=== PATIENT | male | born 1960 | race Native Hawaiian/Other Pacific Islander ===

== ENCOUNTER 2016-07-19 11:48 | Outpatient (CLI) | payer OTHER | END 2016-07-19 12:48 | disposition home or self-care (01) | LOC: LABW 11:48 | DX: M05.79 Rheumatoid arthritis with rheumatoid factor of multiple sites without organ or systems involvement (principal) | CPT/HCPCS: 82085; 86200; 86480; 86705; 87340 ==

== ENCOUNTER 2016-11-29 11:54 | Outpatient (CLI) | payer OTHER | END 2016-11-29 13:00 | disposition home or self-care (01) | LOC: RAD 11:54 | DX: M05.79 Rheumatoid arthritis with rheumatoid factor of multiple sites without organ or systems involvement (principal) ==

== ENCOUNTER 2017-08-12 15:19 | Inpatient (IN) | payer OTHER ==
[~2017-08-12] VITALS: Ht 167.6 cm; Wt 74.0 kg
[2017-08-12 15:25] VITALS: BP 159/96; TEMP 98.2
[2017-08-12 16:41] LABS: PLATELET COUNT 352 K/uL (142-355)
[2017-08-12 16:59] LABS: POTASSIUM 3.4 mmol/L (3.6-5.2)
[2017-08-12 17:00] VITALS: BP 162/90
[2017-08-12 17:17] LABS: PARTIAL THROMBOPLASTIN TIME 26.6 SECONDS (24.5-33.6)
[2017-08-12 17:56] VITALS: BP 162/100; TEMP 98.6; Ht 167.6 cm; Wt 74.0 kg
[2017-08-12 20:00] VITALS: BP 159/86; TEMP 98.7
[2017-08-13] VITALS (7 sets, daily range): BP systolic 132–167; BP diastolic 82–98; TEMP 97.9–98.4
[2017-08-13 06:22] LABS: PLATELET COUNT 292 K/uL (142-355)
[2017-08-13 06:40] LABS: POTASSIUM 3.8 mmol/L (3.6-5.2)
[2017-08-14 04:00] VITALS: BP 151/90; TEMP 98.3
[2017-08-14 05:20] LABS: PLATELET COUNT 247 K/uL (142-355)
[2017-08-14 05:32] LABS: POTASSIUM 3.7 mmol/L (3.6-5.2)
[2017-08-14 08:00] VITALS: BP 141/90; TEMP 99.8
[2017-08-14] MEDS ORDERED: METR250T19 PO (09:45)
[2017-08-14] MEDS ORDERED: CEPH500C20 PO (09:45)
[2017-08-14] MEDS ORDERED: KETO10TA34 PO (09:45)
[2017-08-14 11:49] VITALS: BP 141/83; TEMP 98.6
== END 2017-08-14 13:20 | disposition home or self-care (01) | DRG 603 ==
LOC: ED 15:19 → MED/SURG 15:45 → ED 17:40 → MED/SURG 08-14 13:20
PROVIDERS: ADMIT Emergency Medicine
DX: L03.213 Periorbital cellulitis (principal); K02.9 Dental caries, unspecified; I10 Essential (primary) hypertension; M15.8 Other polyosteoarthritis; M10.9 Gout, unspecified
CPT/HCPCS: 36415; 80053; 80202; 83735; 85027; 85610; 85730; 87040; 96365; 96366; 96367; 99284; J0696; J1650; J1885; J3370; J3490

== ENCOUNTER 2017-11-25 13:40 | Outpatient (CLI) | payer OTHER ==
[~2017-11-25 13:40] MED LIST: CEPH500C20 PO; KETO10TA34 PO; METR250T19 PO
== END 2017-11-25 20:01 | disposition home or self-care (01) ==
LOC: RAD 13:40
DX: M05.79 Rheumatoid arthritis with rheumatoid factor of multiple sites without organ or systems involvement (principal)

== ENCOUNTER 2019-10-28 16:00 | Outpatient (CLI) | payer OTHER | END 2019-10-28 19:16 | disposition home or self-care (01) | LOC: RAD 16:00 | DX: M05.79 Rheumatoid arthritis with rheumatoid factor of multiple sites without organ or systems involvement (principal) ==

== ENCOUNTER 2020-05-17 16:48 | Emergency (ER) | payer OTHER ==
[~2020-05-17] VITALS: Ht 167.6 cm; Wt 75.8 kg
[2020-05-17 17:32] LABS: PLATELET COUNT 249 K/uL (142-355)
[2020-05-17 17:50] LABS: POTASSIUM 3.8 mmol/L (3.6-5.2); SODIUM 142 mmol/L (136-145)
[2020-05-17 18:15] VITALS: BP 171/90; TEMP 99.9
== END 2020-05-17 18:15 | disposition home or self-care (01) ==
LOC: ED 16:52
PROVIDERS: Hospitalist
DX: I16.0 Hypertensive urgency (principal); F17.290 Nicotine dependence, other tobacco product, uncomplicated
CPT/HCPCS: 36415; 80053; 82550; 83880; 84484; 85027; 85610; 85730; 93005; 99283

== ENCOUNTER 2020-11-20 15:49 | Emergency (ER) | payer OTHER ==
[~2020-11-20] VITALS: Ht 167.6 cm; Wt 75.7 kg
[2020-11-20 15:57] VITALS: TEMP 98.4
[2020-11-20 16:47] LABS: PLATELET COUNT 454 K/uL (142-355)
[2020-11-20 16:58] LABS: POTASSIUM 4.1 mmol/L (3.6-5.2)
[2020-11-20 18:06] VITALS: BP 164/88
== END 2020-11-20 18:06 | disposition home or self-care (01) ==
LOC: ED 15:49
PROVIDERS: Emergency Medicine Emergency Medical Services
DX: I10 Essential (primary) hypertension (principal); Z98.890 Other specified postprocedural states; F17.290 Nicotine dependence, other tobacco product, uncomplicated
CPT/HCPCS: 80053; 85027; 99282; 99283

== ENCOUNTER → 2021-02-01 | Outpatient (CLI) | payer OTHER | LOC: RAD 16:11 | PROVIDERS: ATTEND Nurse Practitioner Family | DX: G60.8 Other hereditary and idiopathic neuropathies (principal) ==

== ENCOUNTER 2021-02-07 11:24 | Outpatient (CLI) | payer OTHER ==
[2021-02-07 11:43] LABS: PLATELET COUNT 250 K/uL (142-355)
[2021-02-07 11:56] LABS: POTASSIUM 4.1 mmol/L (3.6-5.2)
== END 2021-02-07 23:37 | disposition home or self-care (01) ==
LOC: LABW 11:24
PROVIDERS: ATTEND Nurse Practitioner Family
DX: G60.8 Other hereditary and idiopathic neuropathies (principal); M05.79 Rheumatoid arthritis with rheumatoid factor of multiple sites without organ or systems involvement; M71.21 Synovial cyst of popliteal space [Baker], right knee; M72.0 Palmar fascial fibromatosis [Dupuytren]; Z79.899 Other long term (current) drug therapy
CPT/HCPCS: 36415; 80053; 85027; 85652; 86140

== ENCOUNTER 2021-10-26 13:02 | Outpatient (CLI) | payer OTHER ==
[2021-10-26 13:31] LABS: PLATELET COUNT 259 K/uL (142-355)
[2021-10-26 14:14] LABS: POTASSIUM 4.1 mmol/L (3.6-5.2)
== END 2021-10-26 21:02 | disposition home or self-care (01) ==
LOC: LABW 13:02
PROVIDERS: ATTEND Nurse Practitioner Family
DX: G60.8 Other hereditary and idiopathic neuropathies (principal); M05.79 Rheumatoid arthritis with rheumatoid factor of multiple sites without organ or systems involvement; M71.21 Synovial cyst of popliteal space [Baker], right knee; M72.0 Palmar fascial fibromatosis [Dupuytren]; Z79.899 Other long term (current) drug therapy
CPT/HCPCS: 36415; 80053; 85027; 85652; 86140

== ENCOUNTER → 2022-12-06 | Outpatient (CLI) | payer OTHER ==
[2022-12-06 13:22] LABS: PLATELET COUNT 210 K/uL (142-355)
[2022-12-06 13:39] LABS: POTASSIUM 4.1 mmol/L (3.6-5.2)
== END ==
LOC: LABW 12:58
PROVIDERS: ATTEND Nurse Practitioner Family
DX: M05.79 Rheumatoid arthritis with rheumatoid factor of multiple sites without organ or systems involvement (principal); M71.21 Synovial cyst of popliteal space [Baker], right knee; Z79.631 Long term (current) use of antimetabolite agent; Z79.69 Long term (current) use of other immunomodulators and immunosuppressants; Z79.899 Other long term (current) drug therapy; M25.461 Effusion, right knee
CPT/HCPCS: 36415; 80053; 85027; 85652; 86140

== ENCOUNTER 2023-02-21 11:14 | Outpatient (CLI) | payer OTHER ==
[2023-02-21 11:48] LABS: PLATELET COUNT 304 K/uL (142-355)
[2023-02-21 12:24] LABS: POTASSIUM 4.2 mmol/L (3.6-5.2)
== END 2023-02-21 19:16 | disposition home or self-care (01) ==
LOC: LABW 11:14
PROVIDERS: ATTEND Nurse Practitioner Family
DX: M05.79 Rheumatoid arthritis with rheumatoid factor of multiple sites without organ or systems involvement (principal); M25.561 Pain in right knee; M71.21 Synovial cyst of popliteal space [Baker], right knee; Z79.69 Long term (current) use of other immunomodulators and immunosuppressants; Z79.899 Other long term (current) drug therapy
CPT/HCPCS: 36415; 80053; 85027; 85652; 86140